=== PATIENT | female | born 1965 | race Caucasian/White ===

== ENCOUNTER → 2017-03-05 | Outpatient (CLI) | payer BC ==
--- NOTE | 2017-03-07 12:01 | Diagnostic Imaging Report ---
EXAM: Bilateral screening mammogram 2D views with tomosynthesis The current study was also evaluated with a Computer Aided Detection (CAD) system. INDICATION: Screening. No current complaints stated on the questionnaire. COMPARISON: 01/04/2015 FINDINGS: The breasts are composed of heterogenous dense parenchyma which may decrease mammographic sensitivity. There is no mass, architectural distortion or suspicious cluster of calcifications. Allowing for technique and positional differences, no suspicious change is seen. IMPRESSION: No significant change. ACR BI-RADS Category 2: Benign findings. Result letter will be mailed to the patient. Note: At least 10% of breast cancer is not imaged by mammography. Dictated by: Dictated on workstation # [id number]
== END ==
LOC: RAD 10:20
PROVIDERS: ATTEND Nurse Practitioner
DX: Z12.31 Encounter for screening mammogram for malignant neoplasm of breast (principal)
CPT/HCPCS: 77067

== ENCOUNTER → 2018-07-08 | Outpatient (CLI) | payer BC ==
--- NOTE | 2018-07-08 18:31 | Diagnostic Imaging Report ---
INDICATION: Routine screening. COMPARISON: Comparison is made with prior mammogram from 03/05/2017 and 01/04/2015. TECHNIQUE: 2D and 3D bilateral screening mammography was performed with computer-aided detection (CAD) system. FINDINGS: Scattered fibroglandular densities are identified bilaterally. The parenchymal pattern is stable. No mass or malignant appearing microcalcifications are seen. The axillae are unremarkable. IMPRESSION: No mammographic features suspicious for malignancy are identified. ACR BI-RADS Category 1: Negative. Result letter will be mailed to the patient. Note: At least 10% of breast cancer is not imaged by mammography. Dictated by: Dictated on workstation # [id number]
== END ==
LOC: RAD 15:46
PROVIDERS: ATTEND Nurse Practitioner
DX: Z12.31 Encounter for screening mammogram for malignant neoplasm of breast (principal)
CPT/HCPCS: 77067

== ENCOUNTER → 2019-10-09 | Outpatient (CLI) | payer BC ==
--- NOTE | 2019-10-12 10:19 | Diagnostic Imaging Report ---
EXAMINATION: Digital mammogram INDICATION: Bilateral screening This study was compared to the prior exams of 07/08/2018, 03/05/2017 and 01/04/2015. At this time there are no current complaints. The current study was also evaluated with a Computer Aided Detection (CAD) system. FINDINGS: There are scattered fibroglandular densities in both breasts which could obscure a lesion. Overall, there does not appear to have been any significant change when compared to the prior exam. No primary or secondary sign of malignancy is noted. IMPRESSION: There is no radiographic evidence for malignancy. ACR BI-RADS Category 1: Negative. Result letter will be mailed to the patient. Note: At least 10% of breast cancer is not imaged by mammography. Dictated by: Dictated on workstation # [id number]
== END ==
LOC: RAD 15:50
PROVIDERS: ATTEND Nurse Practitioner
DX: Z12.31 Encounter for screening mammogram for malignant neoplasm of breast (principal)
CPT/HCPCS: 77067

== ENCOUNTER → 2020-10-26 | Outpatient (CLI) | payer BC ==
--- NOTE | 2020-10-27 08:34 | Diagnostic Imaging Report ---
Indication: Routine screening. Comparison is made with prior mammogram 10/09/2019 07/08/2018. 2-D and 3-D bilateral screening mammography was performed with CAD. Scattered fibroglandular densities are identified bilaterally. The parenchymal pattern is stable. No mass or malignant appearing microcalcifications are seen. Axillae are unremarkable. IMPRESSION: BI-RADS Category 1 No mammographic features suspicious for malignancy are identified. ACR BI-RADS Category 1: Negative. Result letter will be mailed to the patient. Note: At least 10% of breast cancer is not imaged by mammography. Dictated by: Dictated on workstation # [id number]
== END ==
LOC: RAD 15:34
PROVIDERS: ATTEND Surgery
DX: Z12.31 Encounter for screening mammogram for malignant neoplasm of breast (principal)
CPT/HCPCS: 77063; 77067

== ENCOUNTER 2021-03-07 09:05 | Outpatient (CLI) | payer BC ==
[~2021-03-07] VITALS: Ht 162.6 cm; Wt 78.5 kg
[2021-03-07] MEDS ORDERED: ESTR1TAB24 PO (10:36)
[2021-03-07] MEDS ORDERED: MEDR5TAB PO (10:36)
== END 2021-03-07 10:38 | disposition home or self-care (01) ==
LOC: PREOP 09:05
PROVIDERS: ATTEND Surgery
DX: Z01.818 Encounter for other preprocedural examination (principal)

== ENCOUNTER 2021-03-08 12:01 | Day surgery (SDC) | payer BC ==
[~2021-03-08] VITALS: Ht 162.6 cm; Wt 78.5 kg
[2021-03-08] VITALS (17 sets, daily range): BP systolic 104–145; BP diastolic 55–94
[~2021-03-08 12:01] MED LIST: ESTR1TAB24 PO; MEDR5TAB PO
[2021-03-08] MEDS ORDERED: NS IV 500 ML 500 ML ONE (12:07)
--- NOTE | 2021-03-08 12:10 | Conscious Sedation/ASA ---
Conscious Sedation Pre-Proced Time 12:00 ASA Score 2 For ASA 3 and 4: Consider anesthesia and medical clearance. Also, for patients with a history of failed moderate sedation consider anesthesia. Airway Lungs Heart ASA score ASA 1: a normal healthy patient ASA 2: a patient with a mild systemic disease (mid diabetes, controlled hypertension, obesity ASA 3: a patient with a severe systemic disease that limits activity (angina, COPD, prior Myocardial infarction) ASA 4: a patient with an incapacitating disease that is a constant threat to life (CHF, renal failure) ASA 5: a moribund patient not expected to survive 24 hrs. (ruptured aneurysm) ASA 6: a declared brain- patient whose organs are being harvested. For emergent operations, add the letter E after the classification Mallampati Classification Grade 2 Sedation Plan Analgesia, Amnesia, Plan communicated to team members, Discussed options with patient/fam, Discussed risks with patient/fam The patient is an appropriate candidate to undergo the planned procedure, sedation, and anesthesia. The patient immediately re-assessed prior to indication. JOE ELLIS MD Mar 08, 2021 12:09
--- NOTE | 2021-03-08 12:10 | Progress Note-Pre Operative ---
Pre-Operative Progress Note H&P Reviewed The H&P was reviewed, patient examined and no changes noted. Date Seen by Provider: Mar 08, 2021 Time Seen by Provider: 12:00 Date H&P Reviewed: Mar 08, 2021 Time H&P Reviewed: 12:00 Pre-Operative Diagnosis: screening JOE Sher MD Mar 08, 2021 12:10
--- NOTE | 2021-03-08 12:12 | Discharge Inst-Surgical ---
D/C Lap Instructions-RHONDA Follow Up Activity as tolerated High Fiber Diet 25g or more per day Avoid Alcohol, Caffeine, Spicy Clear Spring and Acid foods. Drink 64 fluid oz or more of fluids per day. Symptoms to Report: Fever over 101 degree F, Nausea/Vomiting If any problems/questions: Contact your physician or go to Emergency Room JOE ELLIS MD Mar 08, 2021 12:12
[2021-03-08] MEDS ORDERED: MIDAZOLAM 5 MG/5 ML (VERSED) VIAL IV ONE (12:15)
[2021-03-08] MEDS ORDERED: morphine INJ 4 MG/ML 1 ML (VIAL/SYRINGE) IVP PRN (12:15)
[2021-03-08] MEDS ORDERED: ONDANSETRON 4 MG/2 ML (SDV) Z0FRAN IVP PRN (12:15)
[2021-03-08] MEDS ORDERED: LIDOCAINE JELLY 2% 6 ML SYRINGE MM PRN (12:15)
[2021-03-08] MEDS ORDERED: fentaNYL INJ 100 MCG/2 ML AMP IVP ONE (12:15)
[2021-03-08] MEDS ORDERED: NS IV 500 ML 500 ML IV PRN (12:15)
[2021-03-08] MEDS ORDERED: fentaNYL INJ 250 MCG/5 ML AMP ONE (14:15)
--- NOTE | 2021-03-08 14:36 | Progress Note-Post Operative ---
Post-Operative Progess Note Surgeon (s)/Automotive Parts Counter Associate (s) Surgeon JOE ELLIS MD Automotive Parts Counter Associate: none Pre-Operative Diagnosis screening colo Post-Operative Diagnosis mild chronic stage 2 ext and int hemorrhoids, small flat proximal rectal polyp Procedure & Operative Findings Date of Procedure 03/08/21 Procedure Performed/Findings colonoscopy with bx. Anesthesia Type cs Estimated Blood Loss Estimated blood loss (mL): minimal Specimens/Packing Specimens Removed rectal polyp JOE ELLIS MD Mar 08, 2021 14:36
--- NOTE | 2021-03-08 18:29 | OPERATIVE REPORT ---
DATE OF SERVICE: 03/08/2021 ATTENDING PRIMARY CARE PHYSICIAN: Andrew Decker DO PREOPERATIVE DIAGNOSIS: Screening colonoscopy. POSTOPERATIVE DIAGNOSES: Mild chronic stage II external and internal hemorrhoids, small flat rectal polyp. PROCEDURE: Colonoscopy with biopsy. SURGEON: Joe Ellis MD. ANESTHESIA: Conscious sedation. ESTIMATED BLOOD LOSS: Minimal. FINDINGS: Mild chronic stage II external and internal hemorrhoids, small flat rectal polyp. DISPOSITION: The patient tolerated the procedure well. INDICATIONS: The patient is a 55-year-old female in need of a screening colonoscopy. She has not had a colonoscopy up to this point in her life. She does not report any major issues with diarrhea, no constipation as well as no red blood per rectum nor any dark tarry stools. She also does not report any family history of colon cancer. DESCRIPTION OF PROCEDURE: The patient was brought to the endoscopy suite, laid in the left lateral decubitus position. After adequate IV pain and sedative medications and conscious sedation anesthesia, digital rectal examination was performed. Mild chronic stage II external and internal hemorrhoids were identified, which were not actively edematous nor inflamed and no bleeding. Normal suture tone was felt and there were no palpable masses. The endoscope was then intubated and anus and rectum gently insufflated. At the more proximal part of the rectum. A flat small polyp identified and this was biopsied with forceps with visualization of good hemostasis. The endoscope was then advanced through the sigmoid colon where no diverticulosis identified. The endoscope was then advanced through the remainder of the descending, transverse and ascending colon to the cecum. These segments were normal. There were no other lesions identified. The endoscope was then slowly withdrawn while taking a second look and suctioning of residual air with no additional findings. The patient tolerated the procedure well. We will recommend medical management with a high fiber diet with fiber supplementation, which should equal or exceed 25 grams daily as well as significant amounts of water to promote soft stools on a daily basis. We will await the biopsy results; however, if this is a benign hyperplastic polyp or a tubular adenoma, she may wait 10 years for her next colonoscopy. Job ID: [id number] DocumentID: [id number] Dictated Date: 03/08/2021 14:33:13 Coil Tester Date: 03/08/2021 18:28:47 Dictated By: JOE ELLIS MD
== END 2021-03-08 15:10 | disposition home or self-care (01) ==
LOC: ENDO 12:01
PROVIDERS: ATTEND Surgery
DX: Z12.11 Encounter for screening for malignant neoplasm of colon (principal); K62.1 Rectal polyp; K64.1 Second degree hemorrhoids; Z90.49 Acquired absence of other specified parts of digestive tract; Z79.899 Other long term (current) drug therapy

== ENCOUNTER → 2021-07-27 | Outpatient (CLI) | payer BC ==
--- NOTE | 2021-07-27 15:25 | Diagnostic Imaging Report ---
PROCEDURE: Pelvic comp/transvaginal sonogram. TECHNIQUE: Complete transabdominal and transvaginal pelvic ultrasound was performed. In addition, limited pelvic Doppler was performed. INDICATION: Postmenopausal bleeding. Uterus is anteverted measuring 8.0 x 3.5 x 4.6 cm. Endometrium is 5 mm in thickness. No myometrial mass is identified. There is a questionable fibroid in the anterior uterus near the lower uterine segment measuring approximately 12 mm x 10 mm. Right ovary measures 2.7 x 1.4 x 1.7 cm. There is blood flow to right ovary. Left ovary was not visualized. There are prominent vascular structures in the adnexa bilaterally suggestive of pelvic congestion. No free fluid is seen. IMPRESSION: 1. Nonvisualized left ovary. 2. Prominent vascular structures throughout the pelvis, raising question of pelvic congestion. Dictated by: Dictated on workstation # [id number]
== END ==
LOC: RAD 14:30
PROVIDERS: ATTEND Surgery
DX: N95.0 Postmenopausal bleeding (principal)
CPT/HCPCS: 76830; 76856

== ENCOUNTER → 2022-10-05 | Outpatient (CLI) | payer BC ==
--- NOTE | 2022-10-08 09:29 | Diagnostic Imaging Report ---
INDICATION: Routine screening. COMPARISON: 10/26/2020 and 10/09/2019. TECHNIQUE: 2D and 3D bilateral screening mammography was performed with CAD. FINDINGS: Scattered fibroglandular densities are identified bilaterally. The parenchymal pattern is stable. No mass or malignant-appearing microcalcifications are seen. The axillae are unremarkable. IMPRESSION: No mammographic features suspicious for malignancy are identified. ACR BI-RADS Category 2: Benign findings. Result letter will be mailed to the patient. Note: At least 10% of breast cancer is not imaged by mammography. Dictated by: Dictated on workstation # [id number]
== END ==
LOC: RAD 15:15
PROVIDERS: ATTEND Surgery
DX: Z12.31 Encounter for screening mammogram for malignant neoplasm of breast (principal)
CPT/HCPCS: 77063; 77067